=== PATIENT | male | born 1985 | race Hispanic/Latino ===

== ENCOUNTER 2017-06-10 03:20 | Emergency (ER) | payer SELFPAY ==
[2017-06-10] MEDS ORDERED: Fentanyl 100 MCG/2 ML VIAL ONE ×2 (03:49→11:39)
[2017-06-10] MEDS ORDERED: Famotidine In NaCl 20 mg/50 ml Premix Bag ONE (03:49)
[2017-06-10] MEDS ORDERED: Ondansetron HCl/PF 4 MG/2 ML Vial ONE (03:49)
[2017-06-10 04:05] LABS: #Basophils 0.1 thou/uL (0.0-0.2); #Eosinphils 0.2 thou/uL (0.0-0.7); #Lymphocytes 1.6 thou/uL (1.20-3.40); #Monocytes 1.1 thou/uL (0.11-0.59); #Neutrophils 8.3 thou/uL (1.40-6.50); %Eosinophils 1.8 % (0.0-10.0); %Monocytes 9.5 % (0.0-10.0); %Neutrophils 73.7 % (42.0-75.0); Hemoglobin 15.2 g/dL (14.0-18.0); Mean Corpuscular HGB CONC 34.4 g/dL (32.0-36.0); Mean Corpuscular Hemoglobin 30.7 pg (27.0-31.0); Platelet Count 180 thou/uL (130-400); RBC Distribution Width 12.3 % (11.5-14.5); Red Blood Cell (RBC) Count 4.97 mill/uL (4.70-6.10); White Blood Cell (WBC) Count 11.3 thou/uL (4.8-10.8)
[2017-06-10 04:08] LABS: Clarity Clear (Clear)
[2017-06-10 04:09] LABS: Bilirubin Negative (Negative); Blood, Urine Negative (Negative); Glucose, Urine (Dipstick) Negative (Negative); Leukocyte Negative (Negative); Nitrite Negative (Negative); Protein, Urine (Dipstick) Negative (Neg-Trace); Specific Gravity, Urine 1.015 (1.005-1.030); Urobilinogen 0.2 mg/dL (0.2-1.0)
[2017-06-10 04:21] LABS: Anion Gap 12 mmol/L (10-20); BUN (Urea Nitrogen) 15 mg/dL (8.9-20.6); Calc. Creatinine Clearance 0 mL/min (70-130); Calcium 9.3 mg/dL (7.8-10.44); Carbon Dioxide 32 mmol/L (22-29); Estimated GFR-MDRD Greater than 90; Glucose 106 mg/dL (70-105)
[2017-06-10 04:22] LABS: Chloride 101 mmol/L (98-107); Potassium 3.6 mmol/L (3.5-5.1); Sodium 141 mmol/L (136-145)
[2017-06-10] MEDS ORDERED: Piperacillin/Tazobactam 3.375 GM VIAL ONE (06:36)
--- NOTE | 2017-06-10 08:05 | CT ---
PRELIMINARY REPORT/[facility]/EMERGENCY AFTER HOURS PROCEDURE: Addendum created by Andrzej Joyce MD on 06/10/2017 6:26 AM Central Time ([place]) Addendum: Findings discussed with and acknowledged by Dr. Clements at 6:[address] on 06/10/2017 with an y questions answered. Initial Report created on 06/10/2017 6:20 AM Central Time ([place] \[place]\ [place]) EXAM: CT Abdomen and Pelvis With Intravenous Contrast CLINICAL HISTORY: The patient is a 32 years male; Pain; Abdominal pain; Flank; Right upper quadrant (ruq) TECHNIQUE: Axial computed tomography images of the abdomen and pelvis with intravenous contrast. Coronal reformatted images were created and reviewed. CONTRAST: 90 mL of ISOVUE 370 AND GASTROVIEW administered intravenously. COMPARISON: No relevant prior studies available. FINDINGS: Lower thorax: No acute findings. ABDOMEN: Liver: Unremarkable. No mass. Gallbladder and bile ducts: No calcified stones. No ductal dilation. Pancreas: Unremarkable. No mass. No ductal dilation. Spleen: Unremarkable. No splenomegaly. Adrenals: Unremarkable. No mass. Kidneys and ureters: Unremarkable. No solid mass. No hydronephrosis. Stomach and bowel: Inflammation along the cecum/right colon related to appendicitis. Otherwise unremarkable. No obstruction. Appendix: Retrocecal appendix, diffusely irregular and thickened measuring up to 11 mm in caliber an d with extensive periappendiceal stranding and free fluid. No extraluminal gas. No organized fluid c ollection/abscess at this time. PELVIS: Bladder: Unremarkable. No mass. Reproductive: Unremarkable as visualized. ABDOMEN and PELVIS: Intraperitoneal space: In addition to periappendiceal findings described above, there is a small she unt of hypodense free fluid layering dependently within the pelvis. No free air. Bones/joints: No acute fracture. No dislocation. Soft tissues: Unremarkable. Vasculature: Unremarkable. No abdominal aortic aneurysm. Lymph nodes: Unremarkable. No enlarged lymph nodes. IMPRESSION: 1. Acute appendicitis with marked irregularity and inflammation possibly indicating contained perfor ation. No pneumoperitoneum. Note that the appendix is retrocecal in position. Thank you for allowing us to participate in the care of your patient. Dictated and Authenticated by: Andrzej Joyce MD 06/10/2017 6:20 AM Central Time ([place] \[place]\ [place]) FINAL REPORT EMERGENCY AFTER HOURS CT ABDOMEN AND PELVIS WITH CONTRAST: Date: 06/10/17 FINDINGS/IMPRESSION: I agree with the findings and impression given in the preliminary report per [facility] physician. Acute a ppendicitis. POS: [facility]
[2017-06-10] MEDS ORDERED: Sodium Chloride 0.9% 100 ML BAG ONE (08:50)
[2017-06-10] MEDS ORDERED: Iopamidol 370 76% 100 ML VIAL ONE (09:50)
[2017-06-10] MEDS ORDERED: Bupivacaine 0.25% HCL 30 ML VIAL ONE (11:37)
[2017-06-10] MEDS ORDERED: Lidocaine 1% w/Epinephrine 1:200K 30 ML VIAL ONE (12:33)
== END 2017-06-10 06:56 | disposition home or self-care (01) ==
LOC: MADERS 03:20
DX: K35.80 Unspecified acute appendicitis (principal); H60.509 Unspecified acute noninfective otitis externa, unspecified ear; F41.9 Anxiety disorder, unspecified; Z79.899 Other long term (current) drug therapy
CPT/HCPCS: 74177; 80048; 81003; 82150; 85025; 96365; 96375; J1170; J2405; J2543; J3010; J7050; S0020

== ENCOUNTER 2021-11-19 09:09 | Emergency (ER) | payer SELFPAY ==
[2021-11-19] MEDS ORDERED: HYDROcodone/Acetaminophen 5/325 mg Tablet ONE (09:55)
== END 2021-11-19 11:28 | disposition home or self-care (01) ==
LOC: MADERS 09:09
DX: S63.602A Unspecified sprain of left thumb, initial encounter (principal); W23.0XXA Caught, crushed, jammed, or pinched between moving objects, initial encounter

== ENCOUNTER 2024-05-16 22:50 | Emergency (ER) | payer SELFPAY ==
[2024-05-16] MEDS ORDERED: Ibuprofen 800 MG TAB ONE (23:34)
[2024-05-16] MEDS ORDERED: Acetaminophen 500 MG TAB ONE (23:34)
== END 2024-05-16 23:55 | disposition home or self-care (01) ==
LOC: MADERS 22:50
DX: R56.9 Unspecified convulsions (principal)
CPT/HCPCS: 36416; 99284